=== PATIENT | female | born 1965 | race Caucasian/White ===

== ENCOUNTER 2023-08-23 22:04 | Emergency (ER) | payer SELFPAY ==
[~2023-08-23] VITALS: Ht 167.6 cm; Wt 96.0 kg
[~2023-08-23 22:04] MED LIST: MOTRIN
[2023-08-23 22:14] VITALS: O2SAT 99
[2023-08-24] MEDS: DIPHENHYDRAMINE 50MG/ML VIAL IV ONE (00:18)
[2023-08-24] MEDS: METHYLPREDNISOLONE SOD SUCC 125MG/2ML (ACT-O-VIAL) IV ONE (00:19)
[2023-08-24] MEDS: FAMOTIDINE 20MG/2ML VIAL IV ONE (00:19)
[2023-08-24 00:38] VITALS: BP 204/99; PULSE 103; RESP 17; TEMP 97.3
[2023-08-24] MEDS ORDERED: P50 PO (01:10)
== END 2023-08-24 03:18 | disposition home or self-care (01) ==
LOC: ER 22:04
DX: L50.9 Urticaria, unspecified (principal); I10 Essential (primary) hypertension; Z90.710 Acquired absence of both cervix and uterus
CPT/HCPCS: 99284; 96374; 96375; J1200; J3490; J2930

== ENCOUNTER 2024-08-02 15:24 | Emergency (ER) | payer BC ==
[~2024-08-02] VITALS: Ht 167.6 cm; Wt 88.0 kg
[~2024-08-02 15:24] MED LIST changes: +P50 PO
[2024-08-02 16:13] VITALS: O2SAT 98
[2024-08-02] MEDS: ACETAMINOPHEN 325MG TABLET PO NR (19:50)
[2024-08-02] MEDS: SODIUM CHLORIDE 0.9% 500 ML IV ONE (20:57)
[2024-08-02] MEDS: METOCLOPRAMIDE HCL 10MG/2ML VIAL IV NR (20:58)
[2024-08-02 21:22] LABS: BASOPHILS % 0.5 % (0.0-2.0); EOSINOPHILS % 2.9 % (0.0-5.0); HEMATOCRIT. 39.7 % (36.0-48.0); HEMOGLOBIN. 13.3 g/dL (12.0-16.0); LYMPHOCYTES % 36.9 % (20.0-50.0); MEAN CORPUSCULAR HEMOGLOBIN 30.3 pg (28.0-32.0); MEAN CORPUSCULAR HGB CONC 33.6 g/dL (31.0-37.0); MEAN CORPUSCULAR VOLUME 90.2 fL (81.0-99.0); MEAN PLATELET VOLUME 8.2 fl (7.4-10.4); MONOCYTES % 5.7 % (2.0-8.0); PLATELET 275 x1000/uL (130-400); RED CELL DISTRIBUTION WIDTH 14.4 % (11.6-14.6); WHITE BLOOD COUNT 6.7 x1000/uL (4.5-11.0)
[2024-08-02 21:31] LABS: CHLORIDE 108 mEq/L (98-107); POTASSIUM 3.9 mEq/L (3.5-5.1); SODIUM 142 mEq/L (136-145)
[2024-08-02 21:32] LABS: CALCIUM 9.4 mg/dL (8.7-10.4); CARBON DIOXIDE 26 mEq/L (21-32)
[2024-08-02 21:37] LABS: CREATININE 0.6 mg/dL (0.6-1.0); GLUCOSE 101 mg/dL (70-105); UREA NITROGEN BLOOD 17 mg/dL (9-23)
[2024-08-02 23:15] VITALS: BP 172/78; PULSE 63; RESP 20; TEMP 36.7; O2SAT 98
== END 2024-08-02 23:17 | disposition home or self-care (01) ==
LOC: ER 15:24
DX: S09.90XA Unspecified injury of head, initial encounter (principal); I10 Essential (primary) hypertension; Z79.52 Long term (current) use of systemic steroids; Z90.710 Acquired absence of both cervix and uterus; W22.03XA Walked into furniture, initial encounter; Y93.89 Activity, other specified; Y92.89 Other specified places as the place of occurrence of the external cause; Y99.8 Other external cause status
CPT/HCPCS: 80048; 85025; 36415; 70450; 96360; 99284; J2765; Z7610 ×2